=== PATIENT | female | born 1955 | race Caucasian/White ===

== ENCOUNTER 2021-05-05 15:44 | Emergency (ER) | payer MEDICARE, OTHER ==
[2021-05-05 16:08] VITALS: PULSE 84
[2021-05-05 17:14] VITALS: BP 181/107
--- NOTE | 2021-05-05 17:16 | EDM.PDOC ---
ED HPI GENERAL MEDICAL PROBLEM - General Chief Complaint: ENT Problem Stated Complaint: nose bleed Time Seen by Provider: 05/05/21 16:06 Source of Information: Reports: Patient History Limitations: Reports: No Limitations - History of Present Illness INITIAL COMMENTS - FREE TEXT/NARRATIVE: Pt. presents to ER with complaints of epistaxis. Bleeding is present only from L nare. Pt. states that this started about 55 min before coming to ER. She reports that she has had a couple of other nosebleeds as well within the past few days. Denies any head or facial trauma. She is not anticoagulated. Pt. denies any chest pain or shortness of breath. Denies any headache. She was hypertensive on admission to ER, and reports that she has been out of her lisinopril for some time. She is a smoker. Onset: Today Onset Date: 05/05/21 Location: Reports: Head, Face - Related Data Allergies Allergy/AdvReac Type Severity Reaction Status Date / Time morphine Allergy Itching Verified 05/05/21 15:46 Penicillins Allergy Rash Verified 05/05/21 15:46 Sulfa (Sulfonamide Allergy Rash Verified 05/05/21 15:46 Antibiotics) Home Meds: Home Meds Cholecalciferol (Vitamin D3) [Vitamin D3] 4,000 unit PO DAILY 11/19/17 [History] Levothyroxine Sodium [Synthroid] 175 mcg PO DAILY 11/19/17 [History] Lisinopril 10 mg PO DAILY 11/19/17 [History] Sertraline HCl 100 mg PO DAILY 11/19/17 [History] Simvastatin [Zocor] 40 mg PO BEDTIME 11/19/17 [History] Acetaminophen [Tylenol Arthritis] 3 tab PO DAILY 05/05/21 [History] Past Medical History HEENT History: Reports: Impaired Vision, Other (See Below) Other HEENT History: Patient wears glasses. Cardiovascular History: Reports: High Cholesterol, Hypertension Respiratory History: Reports: None Gastrointestinal History: Reports: None Genitourinary History: Reports: None [employer] History: Reports: Dysfunctional Uterine Bleeding, Endometriosis, , Spontaneous Other [employer] History: SAB during first trimester requiring D&C as below. Otherwise, Full term without complications during pregnancies or deliveries. Surgical menopause as below. Musculoskeletal History: Reports: Arthritis, Back Pain, Chronic, Fracture, Neck Pain, Chronic, Osteoarthritis, Other (See Below) Other Musculoskeletal History: Left elbow wrist fracture in 2012. Right wrist fracture in 2009. Left Caldwell's cyst diagnosed on 12/16/15. Neurological History: Reports: Headaches, Chronic Psychiatric History: Reports: Anxiety, Depression Endocrine/Metabolic History: Reports: Hypothyroidism, Obesity/BMI 30+ Hematologic History: Reports: None Immunologic History: Reports: None Oncologic (Cancer) History: Reports: None Dermatologic History: Reports: None - Infectious Disease History Infectious Disease History: Reports: Chicken Pox, Measles, Mumps, Shingles - Past Surgical History Head Surgeries/Procedures: Reports: None HEENT Surgical History: Reports: Oral Surgery Other HEENT Surgeries/Procedures: [place] teeth extraction 4 at age 20 with additional teeth extractions. Cardiovascular Surgical History: Reports: None Respiratory Surgical History: Reports: None GI Surgical History: Reports: None Female Surgical History: Reports: D&C, Hysterectomy, Salpingo-Oophorectomy, Other (See Below) Other Female Surgeries/Procedures: Bilateral tubal ligation at about age 31. D&C secondary to SAB as above. Complete hysterectomy including bilateral salpingo-oophorectomy secondary to dysfunctional uterine bleeding at age 49. Endocrine Surgical History: Reports: None Neurological Surgical History: Reports: None Musculoskeletal Surgical History: Reports: None Oncologic Surgical History: Reports: None Dermatological Surgical History: Reports: None - Past Imaging History Past Imaging History: Reports: Carotid US (12/19/15), CAT Scan (Brain on 12/16/15.), Mammogram (Last mammogram on 02/18/17), Venous Doppler (Left leg on 12/16/15) Social & Family History - Tobacco Use Tobacco Use Status *Q: Current Every Day Tobacco User Years of Tobacco use: 47 Packs/Tins Daily: 0.5 Used Tobacco, but Quit: No Second Hand Smoke Exposure: Yes - Caffeine Use Caffeine Use: Reports: Coffee - Recreational Drug Use Recreational Drug Use: No - Living Situation & Occupation Living situation: Reports: (1994 to second ), ( from first with 2 children from that relationship), with Family () 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 Denies: Fever, Chills, Malaise, Weakness, Fatigue HEENT: Reports: Nosebleed Respiratory: Reports: No Symptoms Cardiovascular: Reports: No Symptoms Endocrine: Reports: No Symptoms GI/Abdominal: Reports: No Symptoms : Reports: No Symptoms Musculoskeletal: Reports: No Symptoms Skin: Reports: No Symptoms Neurological: Reports: No Symptoms Psychiatric: Reports: No Symptoms Hematologic/Lymphatic: Reports: No Symptoms Immunologic: Reports: No Symptoms ED EXAM, GENERAL - Physical Exam Exam: See Below Exam Limited By: No Limitations General Appearance: Alert, WD/WN, No Apparent Distress Eye Exam: Bilateral Eye: EOMI, PERRL Nose: Other (Pt. resistive to examination of nose. Unable to visualize location of bleeding. No active bleeding was noted. Areas of clotted blood noted in L n are.) Course - Vital Signs Last Recorded V/S: Last Vital Signs Temp 37.1 C 05/05/21 16:06 Pulse 84 05/05/21 16:06 Resp 18 05/05/21 16:06 BP 181/107 H 05/05/21 16:45 Pulse Ox 95 05/05/21 16:06 - Orders/Labs/Meds Labs: Laboratory Tests 05/05/21 Range/Units 16:30 WBC 7.2 (4.0-10.2) K/uL RBC 4.11 (3.77-5.09) M/uL Hgb 13.7 (11.7-15.5) g/dL Hct 41.0 (34.0-46.0) % MCV 99.8 H D (84.0-98.0) fL MCH 33.3 (28.2-33.3) pg MCHC 33.4 (31.7-36.0) g/dL RDW 12.8 (11.2-14.1) % Plt Count 234 (150-350) K/uL Neut % (Auto) 64.2 (45.0-80.0) % Lymph % (Auto) 27.0 (10.0-50.0) % [place] % (Auto) 6.5 (2.0-14.0) % Eos % (Auto) 1.9 (0.0-5.0) % Baso % (Auto) 0.4 (0.0-2.0) % Neut # (Auto) 4.62 (1.40-7.00) K/uL Lymph # (Auto) 1.95 (0.50-3.50) K/uL [place] # (Auto) 0.47 (0.00-1.00) K/uL Eos # (Auto) 0.14 (0.00-0.50) K/uL Baso # (Auto) 0.03 (0.00-0.20) K/uL - Re-Assessments/Exams Free Text/Narrative Re-Assessment/Exam: Pt. upset with staff on arrival to ER, resistive to examination in general. She refuses further examination of nose other than cursory exam with otoscope. She refuses packing. Departure - Departure Time of Disposition: 17:10 Disposition: Home, Self-Care 01 Clinical Impression: Epistaxis Hypertension Qualifiers: Hypertension type: essential hypertension Qualified Code(s): I10 - Essential (primary) hypertension - Discharge Information Instructions: Hypertension, Adult, [id number], Lisinopril Oral Tablets, Nosebleed, Adult, [id number] Referrals: Amla Voss PA [Primary Care Provider] - Forms: ED Department Discharge Additional Instructions: Lisinopril 10mg 1 tab daily Return to ER if you have recurrent bleeding that does not resolve with direct pressure in a hour. Do not blow nose today [place] nasal spray in a couple of times a day to keep your nose moist. Recheck in clinic in 7-10 days. Sepsis Event Note (ED) - Evaluation Sepsis Screening Result: No Definite Risk - Focused Exam Vital Signs: Vital Signs Temp Pulse Resp BP Pulse Ox 05/05/21 16:45 181/107 H 05/05/21 16:06 37.1 C 84 18 180/118 H 95 - Problem List Review Problem List Initiated/Reviewed/Updated: Yes - Assessment/Plan Plan: Pt. willing to restart her lisinopril. She was given a short course from out ER stock. Advised to follow-up with her PCP for blood pressure recheck in 7-10 days. Do not blow nose for next several days. Discussed possible factors contributing to epistaxis, including hypertension and dry environment in homes in winter when heat is one. She was advised to obtain a humidifier or use [place] saline nasal spray to keep nasal mucosa moist. Return to ER if she has recurrent bleeding that does not resolve in 60 min.
== END 2021-05-05 17:04 | disposition home or self-care (01) ==
LOC: LL.ED 15:44
DX: R04.0 Epistaxis (principal); I10 Essential (primary) hypertension; E78.00 Pure hypercholesterolemia, unspecified; E03.9 Hypothyroidism, unspecified; E66.9 Obesity, unspecified; Z68.30 Body mass index [BMI] 30.0-30.9, adult; Z79.899 Other long term (current) drug therapy; Z88.5 Allergy status to narcotic agent; Z88.0 Allergy status to penicillin; Z88.2 Allergy status to sulfonamides
CPT/HCPCS: 36415; 85025; 99283